=== PATIENT | female | born 1985 | race African-American/Black ===

== ENCOUNTER 2017-11-28 10:02 | Emergency (ER) | payer OTHER ==
[2017-11-28 10:15] VITALS: BP 121/69; PULSE 78; TEMP 98.5; BMI 40.5
--- NOTE | 2017-11-28 11:25 | PDOC ---
History of Present Illness - General Chief Complaint: Sore Throat Stated Complaint: ABD PAIN Time Seen by Provider: 11/28/17 10:36 History Source: Patient Exam Limitations: No Limitations - History of Present Illness Initial Comments: 11/28/17 11:21 Patient is a 32-year-old female, denies any significant medical history currently on no medication reports last night started to feel ill chills, fever 102.7, mild sore throat and abdominal pain. Denies any nausea vomiting or diarrhea, no urinary symptoms. No back pain, no chest pain or shortness of breath. Took 2 Motrin at 7:30 AM. Past Medical History: [Denies]. Allergies: No known allergies Medications: None Family History: Non-contributory Social History: Denies smoking, alcohol use, or IVDU Review of Systems GENERAL/CONSTITUTIONAL: [Body aches, fever No weakness. No weight change.] HEAD, EYES, EARS, NOSE AND THROAT: [No change in vision. No ear pain or discharge. Sore throat, none this a.m.] CARDIOVASCULAR: [No chest pain or shortness of breath.] RESPIRATORY: [No cough, wheezing, or hemoptysis.] GASTROINTESTINAL: [No nausea, vomiting, diarrhea or constipation. No rectal bleeding.] GENITOURINARY: [No dysuria, frequency, or change in urination.] MUSCULOSKELETAL: [No joint or muscle swelling or pain. No neck or back pain.] SKIN AND BREASTS: [No rash or easy bruising.] NEUROLOGIC: [No headache, vertigo, loss of consciousness, or loss of sensation.] PSYCHIATRIC: [No depression or anxiety.] ENDOCRINE: [No increased thirst. No abnormal weight change.] HEMATOLOGIC/LYMPHATIC: [No anemia, easy bleeding, or history of blood clots.] ALLERGIC/IMMUNOLOGIC: [No hives or skin allergy. No latex allergy.] Physical Exam: GENERAL: [The patient is awake, alert, and fully oriented, in no acute distress. ] HEAD: [Normal with no signs of trauma.] EYES: [Pupils equal, round and reactive to light, extraocular movements intact, sclera anicteric, conjunctiva clear.] ENT: [Ears normal, nares patent, oropharynx clear without exudates. Moist mucous membranes. No uvula deviation] NECK: [Normal range of motion, supple without lymphadenopathy, JVD, or masses.] LUNGS: [Breath sounds equal, clear to auscultation bilaterally. No wheezes, and no crackles.] HEART: [Regular rate and rhythm, normal S1 and S2 without murmur, rub or gallop. ] ABDOMEN: [Soft, nontender, normoactive bowel sounds. No guarding, no rebound. No masses. No bruising or abrasions] RECTAL : [Guaiac negative, normal rectal tone.] MUSCULOSKELETAL: [Normal range of motion, no edema. No clubbing or cyanosis. No cords, erythema, or tenderness. No CVA Tenderness with fist.] NEUROLOGICAL: [Cranial nerves II through XII grossly intact. Normal speech, normal gait.] PSYCH: [Normal mood, normal affect.] SKIN: [Warm, Dry, normal turgor, no rashes or lesions noted.] Past History - Past Medical History Allergies/Adverse Reactions: Allergies Allergy/AdvReac Type Severity Reaction Status Date / Time No Known Allergies Allergy Verified 11/28/17 10:11 Home Medications: Ambulatory Orders Ibuprofen [Motrin -] 600 mg PO QID #20 tablet 11/28/17 Asthma: No Cancer: No Cardiac Disorders: No COPD: No Diabetes: No HTN: No Hypercholesterolemia: No Seizures: No Thyroid Disease: No - Immunization History Immunization Up to Date: Yes - Suicide/Smoking/Psychosocial Hx Smoking Status: No Smoking History: Never smoked Have you smoked in the past 12 months: No Number of Cigarettes Smoked Daily: 0 Hx Alcohol Use: No Drug/Substance Use Hx: No Substance Use Type: None Hx Substance Use Treatment: No *Physical Exam - Vital Signs Last Vital Signs Temp Pulse Resp BP Pulse Ox 98.5 F 78 18 121/69 99 11/28/17 10:11 11/28/17 10:11 11/28/17 10:11 11/28/17 10:11 11/28/17 10:11 Medical Decision Making - Medical Decision Making 11/28/17 11:24 A/P: Patient's physical examination is unremarkable here with generalized bodyaches, tactile fever, took Motrin this morning currently afebrile. Will send rapid influenza 11/28/17 12:28 Influenza is negative, discharge patient home on Motrin viral illness, follow- up with PMD if symptoms persist. *DC/Admit/Observation/Transfer Diagnosis at time of Disposition: Viral illness - Discharge Dispostion Disposition: HOME Condition at time of disposition: Stable Admit: No - Prescriptions Prescriptions: Ibuprofen [Motrin -] 600 mg PO QID #20 tablet - Referrals Referrals: Paulie Dumont MD [Primary Care Provider] - - Patient Instructions Additional Instructions: Increase fluids to prevent dehydration Motrin for fever greater than 101.0 Please followup with primary care DrHollie in 3 days if symptoms persist If any sore throat, nausea vomiting, or any other concerns return to ER Return to emergency department any increased cough, fever, inability to drink or other concerns - Post Discharge Activity Forms/Work/School Notes: Back to Work
== END 2017-11-28 12:33 | disposition home or self-care (01) ==
LOC: JERFT 10:02
DX: B34.9 Viral infection, unspecified (principal)
CPT/HCPCS: 87804; 99281-25

== ENCOUNTER 2017-12-04 11:15 | Emergency (ER) | payer OTHER ==
[2017-12-04 11:22] VITALS: BP 107/51; PULSE 98; TEMP 98.4; BMI 41.1
--- NOTE | 2017-12-04 11:37 | PDOC ---
History of Present Illness - General Chief Complaint: Cold Symptoms Stated Complaint: COUGH Time Seen by Provider: 12/04/17 11:26 History Source: Patient Exam Limitations: No Limitations - History of Present Illness Initial Comments: 12/04/17 11:32 Patient is a 32-year-old female, history of chronic sinusitis presents with sinus pressure pain, headache, yellow nasal drainage. She reports has same symptoms in the past with sinusitis. Past Medical History: Chronic sinusitis Allergies: No known allergies Medications: None Family History: Non-contributory Social History: Denies smoking, alcohol use, or IVDU Review of Systems GENERAL/CONSTITUTIONAL: [No fever or chills. No weakness. No weight change.] HEAD, EYES, EARS, NOSE AND THROAT: [No change in vision. No ear pain or discharge. No sore throat. Sinus pressure and pain to frontal and maxillary sinuses., Nasal discharge.] CARDIOVASCULAR: [No chest pain or shortness of breath.] RESPIRATORY: [No cough, wheezing, or hemoptysis.] GASTROINTESTINAL: [No nausea, vomiting, diarrhea or constipation. No rectal bleeding.] GENITOURINARY: [No dysuria, frequency, or change in urination.] MUSCULOSKELETAL: [No joint or muscle swelling or pain. No neck or back pain.] SKIN AND BREASTS: [No rash or easy bruising.] NEUROLOGIC: [No headache, vertigo, loss of consciousness, or loss of sensation.] PSYCHIATRIC: [No depression or anxiety.] ENDOCRINE: [No increased thirst. No abnormal weight change.] HEMATOLOGIC/LYMPHATIC: [No anemia, easy bleeding, or history of blood clots.] ALLERGIC/IMMUNOLOGIC: [No hives or skin allergy. No latex allergy.] Physical Exam: GENERAL: [The patient is awake, alert, and fully oriented, in no acute distress. ] HEAD: [Normal with no signs of trauma.] EYES: [Pupils equal, round and reactive to light, extraocular movements intact, sclera anicteric, conjunctiva clear.] ENT: [Ears normal, nares are inflamed and erythematous, bleeding to left nares with drainage, oropharynx clear without exudates. Moist mucous membranes. No uvula deviation. Frontal and maxillary sinus pressure and pain] NECK: [Normal range of motion, supple without lymphadenopathy, JVD, or masses.] LUNGS: [Breath sounds equal, clear to auscultation bilaterally. No wheezes, and no crackles.] HEART: [Regular rate and rhythm, normal S1 and S2 without murmur, rub or gallop. ] ABDOMEN: [Soft, nontender, normoactive bowel sounds. No guarding, no rebound. No masses. No bruising or abrasions] MUSCULOSKELETAL: [Normal range of motion, no edema. No clubbing or cyanosis. No cords, erythema, or tenderness. No CVA Tenderness with fist.] NEUROLOGICAL: [Cranial nerves II through XII grossly intact. Normal speech, normal gait.] SKIN: [Warm, Dry, normal turgor, no rashes or lesions noted.] Past History - Past Medical History Allergies/Adverse Reactions: Allergies Allergy/AdvReac Type Severity Reaction Status Date / Time No Known Allergies Allergy Verified 12/04/17 11:20 Home Medications: Ambulatory Orders Amox-Tr/K Cl [Augmentin - 875Mg Tablet] 1 tab PO BID #14 tablet 12/04/17 Fluticasone Prop 0.05% Nasal [Flonase -] 1 - 2 spray NS BID #1 spray.pump Asthma: No Cancer: No Cardiac Disorders: No COPD: No Diabetes: No HTN: No Hypercholesterolemia: No Seizures: No Thyroid Disease: No - Immunization History Immunization Up to Date: Yes - Suicide/Smoking/Psychosocial Hx Smoking Status: No Smoking History: Never smoked Have you smoked in the past 12 months: No Number of Cigarettes Smoked Daily: 0 Information on smoking cessation initiated: No Hx Alcohol Use: No Drug/Substance Use Hx: No Substance Use Type: None Hx Substance Use Treatment: No *Physical Exam - Vital Signs Last Vital Signs Temp Pulse Resp BP Pulse Ox 98.4 F 98 H 18 107/51 98 12/04/17 11:18 12/04/17 11:18 12/04/17 11:18 12/04/17 11:18 12/04/17 11:18 Medical Decision Making - Medical Decision Making 12/04/17 11:37 A/P: Patient with sinusitis will DC on Augmentin and Flonase, follow-up with ENT *DC/Admit/Observation/Transfer Diagnosis at time of Disposition: Sinusitis Qualifiers: Sinusitis location: frontal Chronicity: acute Recurrence: recurrent Qualified Code(s): J01.11 - Acute recurrent frontal sinusitis - Discharge Dispostion Disposition: HOME Condition at time of disposition: Stable Admit: No - Prescriptions Prescriptions: Amox-Tr/K Cl [Augmentin - 875Mg Tablet] 1 tab PO BID #14 tablet Fluticasone Prop 0.05% Nasal [Flonase -] 1 - 2 spray NS BID #1 spray.pump - Referrals Referrals: Paulie Dumont MD [Primary Care Provider] - - Patient Instructions Printed Discharge Instructions: Sinusitis Additional Instructions: Recommend follow-up with ENT for recurrent sinus infection. If any increased pain, fever, or any other concerns return to ER - Post Discharge Activity Forms/Work/School Notes: Back to Work
== END 2017-12-04 11:46 | disposition home or self-care (01) ==
LOC: JER 11:15 → JERFT 11:15
DX: J01.11 Acute recurrent frontal sinusitis (principal); F98.8 Other specified behavioral and emotional disorders with onset usually occurring in childhood and adolescence; M10.9 Gout, unspecified
CPT/HCPCS: 99281-25

== ENCOUNTER 2022-06-05 10:05 | Emergency (ER) | payer OTHER ==
[2022-06-05 10:18] VITALS: BP 106/58; PULSE 99; RESP 18; TEMP 99.5; BMI 42.5
== END 2022-06-05 10:48 | disposition home or self-care (01) ==
LOC: JER 10:05
DX: R09.81 Nasal congestion (principal); R05.1 Acute cough; R51.9 Headache, unspecified
CPT/HCPCS: 0241U-QW; 99283-25